=== PATIENT | male | born 1960 | race Caucasian/White ===

== ENCOUNTER 2022-09-09 22:39 | Inpatient (IN) | payer OTHER, SELFPAY ==
[2022-09-09 22:07] VITALS: BP 110/80; PULSE 109; RESP 16; TEMP 37.2; O2SAT 100
[2022-09-09 22:10] VITALS: PULSE 105; RESP 12; RESP 17; O2SAT 100
[2022-09-09 22:15] VITALS: BP 129/86; PULSE 110; RESP 16; O2SAT 100
[2022-09-09 22:30] VITALS: BP 97/74; PULSE 104; RESP 14; O2SAT 100
[2022-09-09 22:45] VITALS: BP 85/61; PULSE 98; RESP 19; O2SAT 100
--- NOTE | 2022-09-09 22:55 | HP.PCM.HOS_ITS ---
HPI - General General Date of Admission: 09/09/22 Date of Service: 09/09/22 Chief Complaint: Altered mental status HPI Narrative CHAD DEVINE, is a 62 M with a significant history of liver cancer status post radiation beats who presented to [facility] with altered mental status. History was obtained from outgoing hospitalist and from review of charts as patient was intubated and on mechanical ventilation at the time of se eing patient. Reportedly 3 weeks ago patient was at [facility] in the hospital for altered mental status. At that time he was found to be intoxicated. Reportedly patient's drinks alcohol at the back of his . On the day of current presentation patient again presented to [facility] for altered mental status. His ammonia was normal at 29. The patient was agitated and after trial of multiple medications without any real success to calm his agitation patient was intubated and placed on mechanical ventilation. Patient received etomidate and propofol. CT of his head was negative. Initially patient was given Rocephin. However lab work showed no UTI. He had elevated lactic acid which normalized with IV fluids. It was assumed that patient was in alcohol withdrawal. Of note patient fell 3 days before presentation. Case was discussed with hospitalist and research and development technician and patient was accepted to [facility]. [facility] Medical History (Updated 09/09/22 @ 23:[address] Bakari Stout MD) Liver cancer Home Medications alprazolam 0.5 mg tablet 0.5 mg PO TID PRN Anxiety 09/09/22 [History Last Taken Unknown] clonazepam 1 mg tablet 1 mg PO TID PRN Anxiety 09/09/22 [History Last Taken Unknown] diltiazem HCl 120 mg capsule,extended release 24 hr 120 mg PO DAILY Check with primary doctor 09/09/22 [History Last Taken Unknown] metoprolol succinate 25 mg tablet,extended release 24 hr 25 mg PO DAILY Check with primary doctor 09/09/22 [History Last Taken Unknown] pantoprazole 20 mg tablet,delayed release 20 mg PO DAILY Check with primary doctor 09/09/22 [History Last Taken Unknown] sennosides 8.6 mg-docusate sodium 50 mg tablet (Stool Softener-Laxative) 1 tab PO DAILY PRN Constipation 09/09/22 [History Last Taken Unknown] trazodone 50 mg tablet 50 mg PO QHS sleep 09/09/22 [History Last Taken Unknown] Allergy/AdvReac Type Severity Reaction Status Date / Time fluoxetine Allergy PT UNABLE Verified 09/09/22 23:30 TO RESPOND-NEEDS F/U Family History unable to obtain unable to obtain Surgical History unable to obtain unable to obtain Social History (Updated 09/09/22 @ 23:[address] Bakari Stout MD) alcohol intake: current ROS Review of Systems ROS Unobtainable: due to mental condition Vital Signs Vital Signs Vital Signs: 09/09/22 22:10 Pulse Rate 105 H Respiratory Rate 17 Respiratory Pattern Normal Pulse Ox 100 Fraction of Inspired Oxygen (FIO2) 30 Physical Exam Narrative Physical exam: General: Well-nourished, well-developed. Head: Normocephalic, closely approximated wound on forehead. Eyes: Vision is grossly intact. EOMI ENT: ET tube in place. Neck: Nontender, No thyromegaly. CVS: Tachycardia. S1-S2 present. No murmur, gallop or rub. Respiratory : clear to auscultation bilaterally, chest wall nontender Abdomen: Soft, nontender, nondistended, normal bowel sounds, no masses : Hobbs catheter in place Back: Nontender, no CVA tenderness, no midline spinal tenderness. Extremities: Nontender; no trauma Skin: Normal color, abrasions Neuro: Hypoalert on mechanical ventilation with propofol running. Follows some commands. Mild agitation. Psychiatry: On mechanical ventilation with mild agitation.. Assessment & Plan Assessment/Plan (1) Encephalopathy acute: (2) Liver cancer: PLAN: Plan Acute encephalopathy Etiology unclear but attributed to alcohol withdrawal. Alcohol level at outside hospital was unremarkable. Placed on mechanical ventilation, at outside hospital and continued. ABG at outside hospital showed pH of 7.22; PCO2 of 55; PO2 of 113 on mechanical ventilation of 40%. Repeat ABG. COVID antigen test at outside hospital negative. High sensitive troponin at outside hospital was normal. Urine drug screen at outside hospital was negative for PCP, cocaine, opioids, amphetamines, methadone, barbiturates and THC. However it was positive for diazepines. Reportedly patient takes diazepam at home. CMP at outside hospital was remarkable for potassium of 3.3; bicarbonate of 19.2 low. High-dose of thiamine ordered. Folic acid ordered. Continue propofol. Fentanyl drip added. Turret Lathe Operator consult. Liver cancer Radiation beads placed on 08/01/2022. Follows up at [facility]. Next follow- up is 10/03/2022. Trend CMP. DVT prophylaxis Subcutaneous Lovenox ordered. GI prophylaxis: Pepcid ordered. Charges/Coding Visit Charges Inpatient E&M: 85756 Init Hosp L3
[2022-09-09 22:59] VITALS: BMI 24.4
[2022-09-09 23:00] VITALS: BP 86/62; PULSE 93; RESP 18; O2SAT 100
[2022-09-09] MEDS: 0.9% Normal Saline 1,000 ML 75 ML IV (23:55)
[2022-09-10] VITALS (32 sets, daily range): BP systolic 92–122; BP diastolic 62–81; PULSE 82–100; RESP 12–17; TEMP 36.6–37.3; O2SAT 93–100; BMI 24.4
[2022-09-10 00:15] LABS: Allen Test Positive; Base Excess -5 mmol/L (-2 to +2); Bicarbonate 21.2 mmol/L (22-26); Blood Gas Specimen Type ART; FI02 30; Mode AC; O2 Delivery Device Adult Vent; PEEP 5; PO2 102 mmHG (75-100); RR 12; SITE L Radial; SO2 97 % (95-99); Total Carbon Dioxide 23 mmol/L; Vt 500; pCO2 40.1 mmHg (35-45); pH 7.33 (7.35-7.45)
--- NOTE | 2022-09-10 00:42 | NURSING ---
Pt arrived on 30mcg. Propofol ordered to start at 10mcg, but due to agitation and restlessness pt's propofol remained at 30mcg.
[2022-09-10 03:49] LABS: Absolute Lymphocyte Count 0.92 X10^3/uL (0.83-4.51); Absolute Neutrophil Count 4.7 X10^3/uL (2.0-7.7); Basophil# 0.05 X10^3/uL; Basophil% 0.8 % (0-1); Eosinophil# 0.11 X10^3/uL; Eosinophils% 1.7 % (0-5); Hematocrit 33.2 % (40-54); Lymphocyte # 0.92 X10^3/ul (0.83-4.51); Lymphocyte % 14.2 % (19-41); Mean Corp Hgb Conc 33.1 g/dL (32-36); Mean Corpuscular Hgb 37.5 pg (27.0-32.0); Mean Corpuscular Volume 113.3 fL (80-94); Mean Platelet Vol. 8.6 fl (6.2-12.0); Monocyte# 0.65 X10^3/uL; NRBC Flagged by Analyzer 0 % (0-5); Neutrophil # 4.71 X10^3/uL (2.7-7.7); Neutrophil % 72.4 % (47-70); Platelet Count 277 K/mm3 (150-450); RBC Distribution Width CV 13.9 % (11.6-14.6); RBC Distribution Width SD 57.9 fl (35.1-43.9); Red Blood Count 2.93 M/mm3 (4.6-6.2); White Blood Count 6.5 K/mm3 (4.4-11.0)
[2022-09-10 04:06] LABS: ALB/GLOB Ratio 0.6 RATIO (0.9-2.4); AST(SGOT) 99 U/L (15-37); Alanine Aminotransfer ALT/SGPT 64 U/L (16-61); Albumin, Serum 2.2 g/dL (3.2-5.0); Alkaline Phosphatase 255 U/L (45-117); Anion Gap 6 (5-15); BUN 19 mg/dL (7-18); BUN/Creat Ratio 34.4 RATIO (10-20); Calcium,Total 8.4 mg/dL (8.5-10.1); Chloride 113 mmol/L (98-107); Creatinine, Serum 0.55 mg/dL (0.70-1.30); EST Glomerular Filtration Rate 160 mL/min (>60); Est Glom Filt Rate - Afr Amer 193 mL/min (>60); Estimated Creatinine Clearance 154.81 ml/min; Globulin 3.9 g/dL (2.2-4.2); Glucose 67 mg/dL (74-106); Potassium 3.1 mmol/L (3.5-5.1); Protein, Total 6.1 g/dL (6.4-8.2); Sodium Level 141 mmol/L (136-145)
[2022-09-10] MEDS: Propofol 10MG/Ml 1,000 MG/100 ML Bottle 14.7 MG CONT INF ×4 (05:21→17:12)
[2022-09-10 05:31] LABS: Bedside Glucose 56 mg/dL (74-106)
[2022-09-10 05:35] LABS: Bedside Glucose 73 mg/dL (74-106)
--- NOTE | 2022-09-10 05:40 | RAD_ITS ---
INDICATION: respiratory failure - ETT placement EXAMINATION/TECHNIQUE: X-RAY - XR Chest 1 View COMPARISON: None. FINDINGS: LINES/DEVICES: Endotracheal tube is seen its tip is 4 cm superior to the mli. An NG tube is seen its tip is below the diaphragm is in good position. LUNGS: No consolidation, edema or effusion. No pneumothorax. MEDIASTINUM AND CARDIOVASCULAR STRUCTURES: Cardiac silhouette not enlarged. Central airways and mediastinal contour are unremarkable. BONES AND SOFT TISSUES: Unremarkable. RAD/Chest 1 View (Portable) IMPRESSION: No radiographic evidence of acute cardiopulmonary disease. Electronically Signed: Jayda Siegel MD at 7:05 EDT ,
[2022-09-10 05:49] LABS: Magnesium 1.7 mg/dL (1.6-2.6); Phosphorus 1.7 mg/dL (2.5-4.9)
[2022-09-10] MEDS: Dext 5%-0.45% NS 1,000 ML 75 ML IV (06:03)
[2022-09-10 06:42] LABS: CPK Total, Creatine Kinase 146 U/L (39-308); Triglycerides 129 mg/dL
--- NOTE | 2022-09-10 07:25 | EX.PCM.CONCC ---
Assessment & Plan Assessment/Plan (1) Encephalopathy acute: PLAN: Plan RECOMMENDATIONS: 1. Aggressive electrolyte repletion 2. Initiation of tube feeds 3. Start Seroquel therapy 4. Possible MRI and EEG 5. Obtain further information once family available 6. Initiate empiric antibiotics and panculture with fever IMPRESSIONS: 1. Acute encephalopathy Unclear etiology at this time. Patient does not appear to have brain metastasis on CT of the head on my review. Formal study report is not available for review. It is unclear if patient has had an MRI in the past, but metastasis would be a concern given patient's ongoing liver cancer. Patient does have some electrolyte derangements that may be leading to delirium. These will be aggressively addressed. Patient's laboratory studies are not suggestive of sepsis, but if patient develops fever, recommend panculture and empiric antibiotics 2. Acute respiratory failure secondary to medications Patient with severe agitation requiring intubation for airway protection. Chest x-ray does not show any focal infiltrates or suggestions of aspiration at this time. Patient is on minimal settings. Given ambiguity of problem #1 and intermittent cooperation, will continue mechanical ventilation at this time to facilitate work-up including possible MRI if this has not been completed at an outside facility in the recent past. 3. Hypoglycemia Home medication list is not available for review at this time. We will attempt to obtain information on whether patient is taking hyperglycemic medications. Patient can be initiated on tube feeds. D5 can be discontinued once this has been initiated. Presentation does not appear to be secondary to hypoglycemia. 4. Lack of history/reported liver cancer/potential alcoholism Complicates care, management, recovery and prognosis. We will attempt to obtain further information today. TIME: 35 minutes critical care time spent addressing patient's acute encephalopathy, respiratory failure, hyperglycemia, review of all data and collaboration with care team HPI Consult Data Date of Consult: 09/10/22 HPI Narrative Reason for Consultation: Respiratory failure HPI Narrative: CHAD DEVINE is a 62 M, with past medical history listed below, who presents to [facility] from an outside facility secondary to respiratory failure. Patient reportedly has a history of liver cancer status postradiation beads who had presented with altered mental status. Patient received multiple medications and ultimately received a paralytic and required intubation. Patient reportedly had presented to the outside facility with similar type of complaints 3 weeks prior. There has been questions of intoxication and alcohol abuse. Outside facility did do multiple scans. Patient reportedly had a laceration at the top of his head on Monday of this week, but did not seek medical care. Patient was initially given Rocephin. Patient was transferred to [facility] for further care. Since being at the intensive care unit, patient has become more responsive. Patient, despite propofol, has attempted extubation multiple times. Patient is on minimal vent settings at this time. Patient does not have much additional information available at this time. Patient is on benzodiazepines at baseline, but tox screen has been unrevealing otherwise. Patient has had some issues with hypoglycemia this morning that was treated with glucose. No seizure activity has been reported by medical staff. Patient's is not present for clarification of history. Unable to obtain review of systems at this time. [facility] Medical History Liver cancer Home Medications alprazolam 0.5 mg tablet 0.5 mg PO TID PRN Anxiety 09/09/22 [History Last Taken Unknown] clonazepam 1 mg tablet 1 mg PO TID PRN Anxiety 09/09/22 [History Last Taken Unknown] diltiazem HCl 120 mg capsule,extended release 24 hr 120 mg PO DAILY Check with primary doctor 09/09/22 [History Last Taken Unknown] metoprolol succinate 25 mg tablet,extended release 24 hr 25 mg PO DAILY Check with primary doctor 09/09/22 [History Last Taken Unknown] pantoprazole 20 mg tablet,delayed release 20 mg PO DAILY Check with primary doctor 09/09/22 [History Last Taken Unknown] sennosides 8.6 mg-docusate sodium 50 mg tablet (Stool Softener-Laxative) 1 tab PO DAILY PRN Constipation 09/09/22 [History Last Taken Unknown] trazodone 50 mg tablet 50 mg PO QHS sleep 09/09/22 [History Last Taken Unknown] Allergy/AdvReac Type Severity Reaction Status Date / Time fluoxetine Allergy PT UNABLE Verified 09/09/22 23:30 TO RESPOND-NEEDS F/U Family History unable to obtain Surgical History unable to obtain Social History Smoking Status: Unknown if ever smoked alcohol intake: current ROS Review of Systems ROS Unobtainable: due to endotracheal tube and due to mental status Physical Exam Narrative RASS -1 to +2 Const alert Constitutional Narrative: Fair vent synchrony. Appears older than stated age General Appearance: cooperative and patient mechanically ventilated HEENT normocephalic HEENT Narrative: 5 cm laceration noted on the crown of the head with edges somewhat approximated. No exudate. Slight retrognathia Mouth: endotracheal tube in place and OG tube in place Eyes PERRL and EOMs intact bilaterally Neck full ROM and no lymphadenopathy Chest inspection of chest normal Resp normal respiratory effort Auscultation: clear to auscultation bilaterally; Negative for rales, rhonchi or wheezes Cardio regular rate, regular rhythm, S1 normal heart sound, S2 normal heart sound, no murmurs, no rub and no gallops GI normal to inspection, nondistended, normoactive bowel sounds Extremity no clubbing, cyanosis or edema Skin Skin Narrative: Laceration as above Neuro moves all extremities and no focal motor deficits Psych Mood & Affect: labile affect Medical Records Data Attestation: I reviewed the patient's medical records Medical records narrative: Multiple images were reviewed from disc provided. No reports were available for review. CT of the chest abdomen pelvis does not appear to show any infiltrates or masses to my eye. Patient does not appear to have obstruction or urinary stones. Formal reports are not available Lab / Micro Data Attestation: I reviewed the patient's lab results. Result Diagrams: 09/10/22 03:40 09/10/22 03:40 Labs: Laboratory Results - last 24 hr 09/10/22 03:40: WBC 6.5, RBC 2.93 L, Hgb 11.0 L, Hct 33.2 L, MCV 113.3 H, MCH 37.5 H, MCHC 33.1, RDW Std Deviation 57.9 H, RDW Coeff of Joe 13.9, Plt Count 277, MPV 8.6, Immature Gran % (Auto) 0.900, Neut % (Auto) 72.4 H, Lymph % (Auto) 14.2 L, [place] % (Auto) 10.0, Eos % (Auto) 1.7, Baso % (Auto) 0.8, Absolute Neuts (auto) 4.7, Absolute Lymphs (auto) 0.92, Nucleated RBC % 0 09/10/22 03:40: Sodium 141, Potassium 3.1 L, Chloride 113 H, Carbon Dioxide 22.0, Anion Gap 6, BUN 19 H, Creatinine 0.55 L, Estim Creat Clear Calc 154.81, Est GFR (MDRD) Af Amer 193, Est GFR (MDRD) Non-Af 160, BUN/Creatinine Ratio 34.4 H, Glucose 67 L, Calcium 8.4 L, Total Bilirubin 0.60, AST 99 H, ALT 64 H, Alkaline Phosphatase 255 H, Total Protein 6.1 L, Albumin 2.2 L, Globulin 3.9, Albumin/Globulin Ratio 0.6 L 09/10/22 03:40: Total Creatine Kinase 146, Triglycerides 129 09/10/22 03:40: Phosphorus 1.7 L, Magnesium 1.7 09/10/22 04:42: POC Glucose 56 L 09/10/22 05:14: POC Glucose 73 L Micro: Microbiology 09/09/22 22:05 Sputum, Tracheal Aspirate Gram Stain - Preliminary ABG Data ABG results: ABG 09/10/22 00:08 Specimen Type ART Sample Site L Radial pH 7.33 L Bicarbonate Actual 21.2 L Total CO2 23 Base Excess -5 L O2 Saturation 97 O2 % 30 ABG pCO2 40.1 ABG pO2 102 H Wilver Test Positive Respiration Rate 12 O2 Delivery Device Adult Vent Vent Mode AC Tidal Volume 500 POC PEEP 5 Attestation: I personally reviewed and interpreted this ABG as follows: (Acute mild metabolic acidosis with increased AA gradient) Rhythm Strip Rhythm Strip: Sinus Rhythm Rate: 91 Radiology Impression Chest X-Ray 09/10/22 05:40 IMPRESSION: No radiographic evidence of acute cardiopulmonary disease. Electronically Signed: Jayda Siegel MD at 7:05 EDT Reading Location ID and State: [facility] / [place] Tel , Service support , Charges/Coding Procedures Hospitalists Procedures: [id number] Critial Care 1st Hr
[2022-09-10] MEDS: Potassium Chloride Oral Soln 20 MEQ/15 ML UDC 40 MEQ PO (07:45)
[2022-09-10] MEDS: Chlorhexidine 15 ML PO ×2 (07:46→20:58)
[2022-09-10] MEDS: CHLORHEXIDINE GLUC 2% CLOTH 1 EACH TOWELETTE TOPICAL (07:50)
[2022-09-10] MEDS: QUEtiapine 25 MG Tablet 50 MG GT ×2 (08:51→20:58)
[2022-09-10] MEDS: Enoxaparin 40 MG/0.4 ML Syringe SC (08:53)
--- NOTE | 2022-09-10 10:09 | PN.HOSP_ITS ---
Reason for Visit Reason for Visit: Diagnoses Malignant neoplasm of liver, not specified as primary or secondary (09/09/22) Encephalopathy, unspecified (09/09/22) Subjective Subjective Presently intubated, is following commands Objective Data Objective Data Vital Signs: Vital Signs Temp Pulse Resp BP Pulse Ox O2 Del Method FiO2 98.5 F 92 16 101/73 96 Mechanical Ventilator 21 09/10/22 05:00 09/10/22 09:17 09/10/22 09:17 09/10/22 07:00 09/10/22 09:17 09/10/22 07:00 09/10/22 09:17 Oxygen Delivery Method Mechanical Ventilator Weight: 81.8 kg Body Mass Index (BMI) 24.4 Intake & Output: Intake and Output for Last 24 Hours 09/08/22 09/09/22 09/10/22 23:59 23:59 23:59 Intake Total 742.77 / 742.77 Balance 742.77 / 742.77 Lab / Micro Data Result Diagrams: 09/10/22 03:40 09/10/22 03:40 Labs: Laboratory Results - last 24 hr 09/10/22 03:40: WBC 6.5, RBC 2.93 L, Hgb 11.0 L, Hct 33.2 L, MCV 113.3 H, MCH 37.5 H, MCHC 33.1, RDW Std Deviation 57.9 H, RDW Coeff of Joe 13.9, Plt Count 277, MPV 8.6, Immature Gran % (Auto) 0.900, Neut % (Auto) 72.4 H, Lymph % (Auto) 14.2 L, [place] % (Auto) 10.0, Eos % (Auto) 1.7, Baso % (Auto) 0.8, Absolute Neuts (auto) 4.7, Absolute Lymphs (auto) 0.92, Nucleated RBC % 0 09/10/22 03:40: Sodium 141, Potassium 3.1 L, Chloride 113 H, Carbon Dioxide 22.0, Anion Gap 6, BUN 19 H, Creatinine 0.55 L, Estim Creat Clear Calc 154.81, Est GFR (MDRD) Af Amer 193, Est GFR (MDRD) Non-Af 160, BUN/Creatinine Ratio 34.4 H, Glucose 67 L, Calcium 8.4 L, Total Bilirubin 0.60, AST 99 H, ALT 64 H, Alkaline Phosphatase 255 H, Total Protein 6.1 L, Albumin 2.2 L, Globulin 3.9, Albumin/Globulin Ratio 0.6 L 09/10/22 03:40: Total Creatine Kinase 146, Triglycerides 129 09/10/22 03:40: Phosphorus 1.7 L, Magnesium 1.7 09/10/22 04:42: POC Glucose 56 L 09/10/22 05:14: POC Glucose 73 L Micro: Microbiology 09/09/22 22:05 Sputum, Tracheal Aspirate Gram Stain - Preliminary ABG Data ABG results: ABG 09/10/22 00:08 Specimen Type ART Sample Site L Radial pH 7.33 L Bicarbonate Actual 21.2 L Total CO2 23 Base Excess -5 L O2 Saturation 97 O2 % 30 ABG pCO2 40.1 ABG pO2 102 H Wilver Test Positive Respiration Rate 12 O2 Delivery Device Adult Vent Vent Mode AC Tidal Volume 500 POC PEEP 5 Radiography Diagnostic Testing: Radiology Impression Chest X-Ray 09/10/22 05:40 IMPRESSION: No radiographic evidence of acute cardiopulmonary disease. Electronically Signed: Jayda Siegel MD at 7:05 EDT , Rhythm Strip Rhythm Strip: Sinus Rhythm Rate: 91 Physical Exam Narrative General: Alert, following commands HEENT: Head lack, normocephalic Eyes: Anicteric, normal conjunctiva, extraocular movements grossly intact Neck: Supple Respiratory: Mechanically ventilated, no wheezing Cardiovascular: Regular rate and rhythm GI: Soft, nontender, nondistended Extremities: 1+ lower extremity edema Musculoskeletal: Moving all extremities Neuro: No overt focal neurological deficits appreciable on present exam Skin: No rashes appreciated Psych: Cooperative Assessment & Plan Assessment/Plan (1) Encephalopathy acute: (2) Liver cancer: PLAN: Plan #Acute encephalopathy -Suspect metabolic but cannot rule out toxic -Had been at outlying facility 3 weeks ago with altered mental status and at the time was intoxicated but represented again yesterday with altered mental status and he was so agitated that he ended up requiring enough medication that he needed intubated -On ventilator in the ED, unclear etiology of this episode -May need MRI of his head given his history of liver cancer -Had fallen several days prior to presentation and has had laceration but CT head with no bleed -Started on Seroquel today, possibly will get MRI and EEG -On empiric antibiotics and cultures obtained given his fever -Was on vent but awake and following commands however given unclear etiology and waxing and waning he has not yet extubated pending conversation with family -Takes benzodiazepines at home talk screen otherwise negative, reportedly previous alcohol levels have been negative -Possible history of alcohol use, continue thiamine and folic acid #Acute respiratory failure secondary to medication for agitation -Remains ventilated, given unclear reason for his presenting problem he remains intubated pending further conversation and test results #Hypoglycemia -Receiving dextrose IV -We will order glucose checks #History of liver cancer -Previously had radiation beads -Has slightly elevated liver function, will trend CMP #DVT ppx: Lovenox subcu Queenie Oviedo MD Time spent in the patient's overall evaluation,decision-making process, review of diagnostic data, adjustment of management, discussion with other providers, nursing nursing and ancillary staff involved in patient's care documentation, 30 minutes Charges/Coding Visit Charges Inpatient E&M: 97137 Subs Hosp L2
[2022-09-10] MEDS: Vital AF 1.2 Cal Liquid 1,000 ML 20 ML GT (11:10)
[2022-09-10 11:40] LABS: Bedside Glucose 71 mg/dL (74-106)
--- NOTE | 2022-09-10 13:35 | CASEMGMT ---
[facility] Face to Face with patient's , Jacquleine, for initial transition planning/care coordination assessment as patient is currently intubated. RN CM introduced self and role at [facility]. willing to participate in assessment and is able to answer all questions appropriately. Care providers, pharmacy, and demographics verified. wishes for patient to discharge home. Will monitor course of treatment and progress with therapy. states she has no further needs or concerns at this time. CM to follow for discharge planning needs that may arise. PCP: Raquel Specialists: Hua underliner; Eulalio Dalal and [facility] onc[facility]sit Preferred Pharmacy: [facility] Insurance: [employer] Prescription Benefit: yes Living Will/HPOA: none LNOK: Living Arrangements: Patient lives with in a single story home with 2 steps to enter. Patient is independent at home. Transportation: self, DME/HHC: Patient has crutches and raised toilet at home. No previous HHC or SNF Disposition Plan: TBD, will monitor course of treatment and progress with therapy. Yvette CANO, RN, CM
[2022-09-10 16:26] LABS: Bedside Glucose 79 mg/dL (74-106)
--- NOTE | 2022-09-10 18:10 | NURSING ---
pt clothes & wallet taken home per
[2022-09-10 22:40] LABS: Bedside Glucose 79 mg/dL (74-106)
[2022-09-10] MEDS: Propofol 10MG/Ml 1,000 MG/100 ML Bottle 17.2 MG CONT INF (23:26)
[2022-09-11] VITALS (27 sets, daily range): BP systolic 94–144; BP diastolic 62–92; PULSE 75–174; RESP 12–23; TEMP 36.6–37.3; O2SAT 93–98; BMI 25.2
[2022-09-11 03:11] LABS: Absolute Lymphocyte Count 1.02 X10^3/uL (0.83-4.51); Absolute Neutrophil Count 3.4 X10^3/uL (2.0-7.7); Basophil# 0.04 X10^3/uL; Basophil% 0.8 % (0-1); Eosinophil# 0.16 X10^3/uL; Eosinophils% 3.1 % (0-5); Hematocrit 30.6 % (40-54); Hemoglobin 10.1 g/dL (13.0-16.5); Lymphocyte # 1.02 X10^3/ul (0.83-4.51); Lymphocyte % 19.7 % (19-41); Mean Corpuscular Hgb 37.1 pg (27.0-32.0); Mean Corpuscular Volume 112.5 fL (80-94); Mean Platelet Vol. 8.5 fl (6.2-12.0); Monocyte# 0.51 X10^3/uL; Monocyte% 9.8 % (0-10); NRBC Flagged by Analyzer 0 % (0-5); Neutrophil # 3.39 X10^3/uL (2.7-7.7); Neutrophil % 65.3 % (47-70); Platelet Count 246 K/mm3 (150-450); RBC Distribution Width CV 13.9 % (11.6-14.6); RBC Distribution Width SD 57.1 fl (35.1-43.9); Red Blood Count 2.72 M/mm3 (4.6-6.2); White Blood Count 5.2 K/mm3 (4.4-11.0)
[2022-09-11] MEDS: Propofol 10MG/Ml 1,000 MG/100 ML Bottle 17.2 MG CONT INF (03:40)
[2022-09-11 03:52] LABS: ALB/GLOB Ratio 0.5 RATIO (0.9-2.4); AST(SGOT) 85 U/L (15-37); Alanine Aminotransfer ALT/SGPT 51 U/L (16-61); Albumin, Serum 1.8 g/dL (3.2-5.0); Alkaline Phosphatase 243 U/L (45-117); Anion Gap 3 (5-15); BUN 19 mg/dL (7-18); BUN/Creat Ratio 36.3 RATIO (10-20); Calcium,Total 7.7 mg/dL (8.5-10.1); Chloride 110 mmol/L (98-107); Creatinine, Serum 0.52 mg/dL (0.70-1.30); EST Glomerular Filtration Rate 170 mL/min (>60); Est Glom Filt Rate - Afr Amer 206 mL/min (>60); Estimated Creatinine Clearance 163.74 ml/min; Globulin 3.5 g/dL (2.2-4.2); Glucose 92 mg/dL (74-106); Magnesium 1.9 mg/dL (1.6-2.6); Potassium 3.3 mmol/L (3.5-5.1); Protein, Total 5.3 g/dL (6.4-8.2); Sodium Level 137 mmol/L (136-145)
[2022-09-11] MEDS: 0.9% Saline Lock 10 ML Syringe IV (04:03)
[2022-09-11] MEDS: CHLORHEXIDINE GLUC 2% CLOTH 1 EACH TOWELETTE TOPICAL (04:04)
[2022-09-11 06:05] LABS: Allen Test Positive; Base Excess 0 mmol/L (-2 to +2); Bicarbonate 24.2 mmol/L (22-26); Blood Gas Specimen Type ART; FI02 21; Mode CPAP/PS; O2 Delivery Device ET Tube; PEEP 5; PO2 58 mmHG (75-100); PS 5; SITE R Radial; SO2 91 % (95-99); Total Carbon Dioxide 25 mmol/L; pH 7.44 (7.35-7.45)
[2022-09-11] MEDS: QUEtiapine 25 MG Tablet 50 MG GT (06:09)
--- NOTE | 2022-09-11 06:20 | NURSING ---
Pt extubated to room air @ 0610.
[2022-09-11 06:46] LABS: Bedside Glucose 90 mg/dL (74-106)
--- NOTE | 2022-09-11 06:55 | PN.CC_ITS ---
Assessment & Plan Assessment/Plan (1) Encephalopathy acute: PLAN: Plan RECOMMENDATIONS: 1. Aggressive electrolyte repletion 2. Initiation of p.o. diet if passes bedside swallow 3. Continue Seroquel therapy 4. Possible MRI and EEG tomorrow. Defer to hospitalist 5. Hemodynamically stable on room air. Will sign off from a critical care perspective 6. Likely okay to leave the intensive care unit later today if does well given intubation only for airway protection IMPRESSIONS: 1. Acute encephalopathy Unclear etiology at this time. Patient does not appear to have brain metastasis on CT of the head on my review. Formal study report is not available for review. It is unclear if patient has had an MRI in the past, but metastasis would be a concern given patient's ongoing liver cancer. Patient does have some electrolyte derangements that may be leading to delirium. These are being aggressively addressed. Patient's laboratory studies are not suggestive of sepsis, but if patient develops fever, recommend panculture and empiric antibiotics 2. Acute respiratory failure secondary to medications Resolved. Patient with severe agitation requiring intubation for airway protection. Chest x-ray does not show any focal infiltrates or suggestions of aspiration at this time. Patient is on minimal settings. Given ambiguity of problem #1 and intermittent cooperation, will continue mechanical ventilation at this time to facilitate work-up including possible MRI if this has not been completed at an outside facility in the recent past. 3. Hypoglycemia Home medication list is not available for review at this time. We will attempt to obtain information on whether patient is taking oral hyperglycemic medications. Await bedside swallow evaluation and then initiate p.o. diet. Presentation does not appear to be secondary to hypoglycemia. 4. Lack of history/reported liver cancer/potential alcoholism Complicates care, management, recovery and prognosis. We will attempt to obtain further information today. TIME: 32 minutes critical care time spent addressing patient's acute encephalopathy, respiratory failure, hyperglycemia, review of all data and collaboration with care team Subjective Subjective Patient did well overnight. Patient continued to have some mild impulsiveness, but otherwise did well. Patient did tolerate a spontaneous breathing trial this morning and was able to be extubated after my initial evaluation. On repeat evaluation, patient was hoarse, so was not able to provide much additional information. Patient did state that he had no recollection of anything past Monday. Patient does not recall going to the outside facility or being transported by EMS. Objective Data Objective Data Vital Signs: Vital Signs Temp Pulse Resp BP Pulse Ox O2 Del Method FiO2 37.3 C 90 12 127/84 H 94 Room Air 21 09/11/22 04:00 09/11/22 06:00 09/11/22 06:00 09/11/22 06:00 09/11/22 06:43 09/11/22 06:43 09/11/22 06:00 Oxygen Delivery Method Room Air Weight: 84.3 kg Body Mass Index (BMI) 25.2 Intake & Output: Intake and Output for Last 24 Hours 09/09/22 09/10/22 09/11/22 23:59 23:59 23:59 Intake Total 3358.6133 / 3370.8633 508.14 / 508.14 Output Total 600 / 600 250 / 250 Balance 2758.6133 / 2770.8633 258.14 / 258.14 Lab / Micro Data Attestation: I reviewed the patient's lab results. Result Diagrams: 09/11/22 03:00 09/11/22 03:00 Labs: Laboratory Results - last 24 hr 09/10/22 11:19: POC Glucose 71 L 09/10/22 15:56: POC Glucose 79 09/10/22 22:21: POC Glucose 79 09/11/22 03:00: WBC 5.2, RBC 2.72 L, Hgb 10.1 L, Hct 30.6 L, MCV 112.5 H, MCH 37.1 H, MCHC 33.0, RDW Std Deviation 57.1 H, RDW Coeff of Joe 13.9, Plt Count 246, MPV 8.5, Immature Gran % (Auto) 1.300 H, Neut % (Auto) 65.3, Lymph % (Auto) 19.7, [place] % (Auto) 9.8, Eos % (Auto) 3.1, Baso % (Auto) 0.8, Absolute Neuts (auto) 3.4, Absolute Lymphs (auto) 1.02, Nucleated RBC % 0 09/11/22 03:00: Sodium 137, Potassium 3.3 L, Chloride 110 H, Carbon Dioxide 2 4.0, Anion Gap 3 L, BUN 19 H, Creatinine 0.52 L, Estim Creat Clear Calc 163.74, Est GFR (MDRD) Af Amer 206, Est GFR (MDRD) Non-Af 170, BUN/Creatinine Ratio 36.3 H, Glucose 92, Calcium 7.7 L, Magnesium 1.9, Total Bilirubin 0.40, AST 85 H, ALT 51, Alkaline Phosphatase 243 H, Total Protein 5.3 L, Albumin 1.8 L, Globulin 3.5, Albumin/Globulin Ratio 0.5 L 09/11/22 03:00: Phosphorus 2.0 L 09/11/22 06:26: POC Glucose 90 Micro: Microbiology 09/09/22 22:05 Sputum, Tracheal Aspirate Gram Stain - Final ABG Data ABG results: ABG 09/11/22 06:01 Specimen Type ART Sample Site R Radial pH 7.44 Bicarbonate Actual 24.2 Total CO2 25 Base Excess 0 O2 Saturation 91 L O2 % 21 ABG pCO2 36.0 ABG pO2 58 L Wilver Test Positive O2 Delivery Device ET Tube Vent Mode CPAP/PS POC PEEP 5 POC Pressure Suppt 5 Attestation: I personally reviewed and interpreted this ABG as follows: (Relatively normal acid-base with slightly increased AA gradient for age) Radiography Diagnostic Testing: Radiology Impression Chest X-Ray 09/10/22 05:40 IMPRESSION: No radiographic evidence of acute cardiopulmonary disease. Electronically Signed: Jayda Siegel MD at 7:05 EDT Reading Location ID and State: [facility] / [place] Tel , Service support , Rhythm Strip Rhythm Strip: Sinus Rhythm Rate: 91 Physical Exam Narrative RASS -1 to +2 Const alert Constitutional Narrative: Tolerated trial well when initially evaluated. Appears older than stated age General Appearance: cooperative and patient mechanically ventilated HEENT normocephalic HEENT Narrative: Large laceration on the top of the skull Eyes PERRL and EOMs intact bilaterally Neck full ROM and no lymphadenopathy Chest inspection of chest normal Resp normal respiratory effort Auscultation: clear to auscultation bilaterally; Negative for rales, rhonchi or wheezes Cardio regular rate, regular rhythm, S1 normal heart sound, S2 normal heart sound, no murmurs, no rub and no gallops GI normal to inspection, nondistended, normoactive bowel sounds Extremity no clubbing, cyanosis or edema Skin Skin Narrative: Laceration as above Neuro moves all extremities and no focal motor deficits Psych Mood & Affect: labile affect Charges/Coding Procedures Hospitalists Procedures: 88661 Critial Care 1st Hr
--- NOTE | 2022-09-11 07:40 | PCM.PN.HOSP ---
Reason for Visit Reason for Visit: Diagnoses Malignant neoplasm of liver, not specified as primary or secondary (09/09/22) Encephalopathy, unspecified (09/09/22) Subjective Subjective Patient extubated this morning. Reports he does not remember many of the events leading up to his hospitalization. Was feeling very anxious and noted he takes 1 mg of clonidine 3 times a day with usually 1 mg of Xanax at bedtime and multiple glasses of wine every night Objective Data Objective Data Vital Signs: Vital Signs Temp Pulse Resp BP Pulse Ox O2 Del Method FiO2 99.1 F 105 H 17 144/78 H 94 Mechanical Ventilator 21 09/11/22 04:00 09/11/22 07:00 09/11/22 07:00 09/11/22 07:00 09/11/22 07:00 09/11/22 07:00 09/11/22 07:00 Oxygen Delivery Method Mechanical Ventilator Weight: 84.3 kg Body Mass Index (BMI) 25.2 Intake & Output: Intake and Output for Last 24 Hours 09/09/22 09/10/22 09/11/22 23:59 23:59 23:59 Intake Total 3358.6133 / 3370.8633 508.14 / 508.14 Output Total 600 / 600 250 / 250 Balance 2758.6133 / 2770.8633 258.14 / 258.14 Lab / Micro Data Result Diagrams: 09/11/22 03:00 09/11/22 03:00 Labs: Laboratory Results - last 24 hr 09/10/22 11:19: POC Glucose 71 L 09/10/22 15:56: POC Glucose 79 09/10/22 22:21: POC Glucose 79 09/11/22 03:00: WBC 5.2, RBC 2.72 L, Hgb 10.1 L, Hct 30.6 L, MCV 112.5 H, MCH 37.1 H, MCHC 33.0, RDW Std Deviation 57.1 H, RDW Coeff of Joe 13.9, Plt Count 246, MPV 8.5, Immature Gran % (Auto) 1.300 H, Neut % (Auto) 65.3, Lymph % (Auto) 19.7, [place] % (Auto) 9.8, Eos % (Auto) 3.1, Baso % (Auto) 0.8, Absolute Neuts (auto) 3.4, Absolute Lymphs (auto) 1.02, Nucleated RBC % 0 09/11/22 03:00: Sodium 137, Potassium 3.3 L, Chloride 110 H, Carbon Dioxide 24.0, Anion Gap 3 L, BUN 19 H, Creatinine 0.52 L, Estim Creat Clear Calc 163.74, Est GFR (MDRD) Af Amer 206, Est GFR (MDRD) Non-Af 170, BUN/Creatinine Ratio 36.3 H, Glucose 92, Calcium 7.7 L, Magnesium 1.9, Total Bilirubin 0.40, AST 85 H, ALT 51, Alkaline Phosphatase 243 H, Total Protein 5.3 L, Albumin 1.8 L, Globulin 3.5, Albumin/Globulin Ratio 0.5 L 09/11/22 03:00: Phosphorus 2.0 L 09/11/22 06:26: POC Glucose 90 Micro: Microbiology 09/09/22 22:05 Sputum, Tracheal Aspirate Gram Stain - Final ABG Data ABG results: ABG 09/11/22 06:01 Specimen Type ART Sample Site R Radial pH 7.44 Bicarbonate Actual 24.2 Total CO2 25 Base Excess 0 O2 Saturation 91 L O2 % 21 ABG pCO2 36.0 ABG pO2 58 L Wilver Test Positive O2 Delivery Device ET Tube Vent Mode CPAP/PS POC PEEP 5 POC Pressure Suppt 5 Rhythm Strip Rhythm Strip: Sinus Rhythm Rate: 91 Physical Exam Narrative General: Alert, awake, following commands HEENT: Head laceration noted, normocephalic Eyes: Anicteric, normal conjunctiva, extraocular movements grossly intact Neck: Supple Respiratory: No significant rhonchi or wheezes Cardiovascular: Regular rate and rhythm GI: Soft, nontender, nondistended Extremities: 1+ lower extremity edema Musculoskeletal: Moving all extremities Neuro: No overt focal neurological deficits, no sustained nystagmus of eyes, slight tremor of outstretched hands with no flapping Skin: No rashes appreciated Psych: Appears very anxious Assessment & Plan Assessment/Plan (1) Encephalopathy acute: (2) Liver cancer: PLAN: Plan #Acute encephalopathy/chronic benzodiazepine use -Suspect metabolic but cannot rule out toxic -Had been at outlying facility 3 weeks ago with altered mental status and at the time was intoxicated but represented again yesterday with altered mental status and he was so agitated that he ended up requiring enough medication that he needed intubated -On ventilator in the ED, unclear etiology of this episode -May need MRI of his head given his history of liver cancer -Had fallen several days prior to presentation and has had laceration but CT head with no bleed -Started on Seroquel today, possibly will get MRI and EEG -On empiric antibiotics and cultures obtained given his fever -Was on vent but awake and following commands however given unclear etiology and waxing and waning he has not yet extubated pending conversation with family -Takes benzodiazepines at home talk screen otherwise negative, reportedly previous alcohol levels have been negative -Possible history of alcohol use, continue thiamine and folic acid -09/10: Patient reports 1 mg Klonopin 3 times daily at home usually with 1 mg of Xanax at night and several glasses of wine. Strongly suspect that this is the cause of form main contributing factor to his altered mental status. Patient getting very anxious now that sedation is wearing off, resume Klonopin and start on CIWA. Would heavily advise that these medications are tapered as an outpatient especially when not advise giving both benzodiazepines at the same time especially with patient's alcohol use. Continue thiamine and folate. MRI ordered for tomorrow. Can consider EEG moving forward pending mental status #Acute respiratory failure secondary to medication for agitation -Remains ventilated, given unclear reason for his presenting problem he remains intubated pending further conversation and test results -09/10: Extubated, protecting airway, transfer out of ICU #Hypoglycemia -Receiving dextrose IV -We will order glucose checks -09/10: Improving #History of liver cancer -Previously had radiation beads -Has slightly elevated liver function, will trend CMP -09/10: Improving liver function tests #DVT ppx: Lovenox subcu Queenie Oviedo MD Time spent in the patient's overall evaluation,decision-making process, review of diagnostic data, adjustment of management, discussion with other providers, nursing nursing and ancillary staff involved in patient's care documentation, 30 minutes Charges/Coding Visit Charges Inpatient E&M: 13934 Subs Hosp L2
--- NOTE | 2022-09-11 09:17 | EKG12_ITS ---
Test Reason : TACHYCARDIA Blood Pressure : / mmHG Vent. Rate : 169 BPM Atrial Rate : 085 BPM P-R Int : 000 ms QRS Dur : 096 ms QT Int : 276 ms P-R-T Axes : 000 051 054 degrees QTc Int : 462 ms Supraventricular tachycardia with frequent Premature ventricular complexes ST depression, consider subendocardial injury Abnormal ECG No previous ECGs available Confirmed by MICHELLE SANCHEZ ([id number]), editor sound BRANDON INMAN ([id number]) on 09/14/2022 10:32:51 AM Referred By: UJAN MITCHELL Confirmed By:MICHELLE SANCHEZ
[2022-09-11] MEDS: Metoprolol Tartrate 5 MG/5 ML Vial IV (09:22)
--- NOTE | 2022-09-11 09:23 | EKG12_ITS ---
Test Reason : TACHYCARDIA Blood Pressure : / mmHG Vent. Rate : 090 BPM Atrial Rate : 090 BPM P-R Int : 154 ms QRS Dur : 090 ms QT Int : 380 ms P-R-T Axes : 080 051 072 degrees QTc Int : 464 ms Normal sinus rhythm Normal ECG When compared with ECG of 11-SEP-2022 09:17, MANUAL COMPARISON REQUIRED, DATA IS UNCONFIRMED Confirmed by MICHELLE SANCHEZ ([id number]), editorial assistant BRANDON INMAN ([id number]) on 09/14/2022 10:32:59 AM Referred By: JUAN MITCHELL Confirmed By:MICHELLE SANCHEZ
[2022-09-11] MEDS: Enoxaparin 40 MG/0.4 ML Syringe SC (09:39)
[2022-09-11] MEDS: clonazePAM 1 MG Tablet PO ×3 (09:42→22:23)
[2022-09-11 13:25] LABS: Bedside Glucose 109 mg/dL (74-106)
[2022-09-11] MEDS: Metoprolol(XL)Succ 25 MG Tablet PO (15:24)
[2022-09-11 16:11] LABS: Bedside Glucose 111 mg/dL (74-106)
[2022-09-11] MEDS: QUEtiapine 25 MG Tablet 50 MG PO (22:23)
[2022-09-12] VITALS (8 sets, daily range): BP systolic 102–131; BP diastolic 65–89; PULSE 81–96; RESP 14–18; TEMP 36.5–37; O2SAT 92–99; BMI 24.7
[2022-09-12 03:12] LABS: Absolute Lymphocyte Count 0.91 X10^3/uL (0.83-4.51); Absolute Neutrophil Count 3.9 X10^3/uL (2.0-7.7); Basophil# 0.05 X10^3/uL; Basophil% 0.9 % (0-1); Eosinophil# 0.15 X10^3/uL; Eosinophils% 2.6 % (0-5); Hematocrit 32.4 % (40-54); Hemoglobin 11.3 g/dL (13.0-16.5); Lymphocyte # 0.91 X10^3/ul (0.83-4.51); Lymphocyte % 15.6 % (19-41); Mean Corp Hgb Conc 34.9 g/dL (32-36); Mean Corpuscular Hgb 37.7 pg (27.0-32.0); Mean Platelet Vol. 8.4 fl (6.2-12.0); Monocyte# 0.74 X10^3/uL; Monocyte% 12.7 % (0-10); NRBC Flagged by Analyzer 0 % (0-5); Neutrophil # 3.92 X10^3/uL (2.7-7.7); Neutrophil % 67.3 % (47-70); Platelet Count 285 K/mm3 (150-450); RBC Distribution Width CV 13.2 % (11.6-14.6); RBC Distribution Width SD 52.2 fl (35.1-43.9); White Blood Count 5.8 K/mm3 (4.4-11.0)
[2022-09-12 04:20] LABS: ALB/GLOB Ratio 0.5 RATIO (0.9-2.4); AST(SGOT) 96 U/L (15-37); Alanine Aminotransfer ALT/SGPT 54 U/L (16-61); Albumin, Serum 1.9 g/dL (3.2-5.0); Alkaline Phosphatase 261 U/L (45-117); Anion Gap 1 (5-15); BUN 11 mg/dL (7-18); BUN/Creat Ratio 21.4 RATIO (10-20); Chloride 109 mmol/L (98-107); Creatinine, Serum 0.51 mg/dL (0.70-1.30); EST Glomerular Filtration Rate 174 mL/min (>60); Est Glom Filt Rate - Afr Amer 210 mL/min (>60); Estimated Creatinine Clearance 166.95 ml/min; Globulin 4.1 g/dL (2.2-4.2); Glucose 90 mg/dL (74-106); Potassium 3.6 mmol/L (3.5-5.1); Sodium Level 139 mmol/L (136-145)
[2022-09-12] MEDS: clonazePAM 1 MG Tablet PO ×3 (07:54→21:05)
[2022-09-12] MEDS: Pantoprazole Sodium 40 MG Tablet PO (07:55)
[2022-09-12] MEDS: Folic Acid 1 MG Tablet PO (07:55)
[2022-09-12] MEDS: Thiamine Hydrochloride 100 MG Tablet PO ×3 (07:55→17:45)
[2022-09-12] MEDS: Metoprolol(XL)Succ 25 MG Tablet PO (07:58)
--- NOTE | 2022-09-12 10:40 | NURSING ---
to MRI per wheelchair
[2022-09-12 11:50] LABS: Bedside Glucose 86 mg/dL (74-106)
[2022-09-12] MEDS: clonazePAM 0.5 MG Tablet PO (11:56)
[2022-09-12] MEDS: Enoxaparin 40 MG/0.4 ML Syringe SC (11:56)
[2022-09-12] MEDS: CHLORHEXIDINE GLUC 2% CLOTH 1 EACH TOWELETTE TOPICAL (11:57)
--- NOTE | 2022-09-12 12:00 | MRI_ITS ---
EXAM: MR HEAD WITHOUT AND WITH INTRAVENOUS CONTRAST CLINICAL INDICATION: mental status change, h/o liver ca, alcohol w/d TECHNIQUE: Multiplanar and multisequence MR images of the brain were obtained without and with intravenous contrast. This report was created using [employer] report generation technology. CONTRAST: IV Clariscan. COMPARISON: None. FINDINGS: BRAIN AND EXTRA-AXIAL SPACES: Following IV contrast administration, there are no enhancing lesions intra-axially and extra-axially. No intra- or extra-axial hemorrhage. No evidence of acute infarct. No intracranial mass or mass effect. There is preservation of the mei/white matter interface. Posterior fossa structures are unremarkable. Ventricles are appropriate for age. No hydrocephalus. Basal cisterns are patent. No focal signal abnormalities throughout the brain parenchyma in all pulse sequences. SELLA: Unremarkable. Normal sella turcica, pituitary gland, infundibular stalk, optic chiasm and hypothalamus. AUDITORY SYSTEM: Unremarkable. The internal auditory canals are patent. BONES/JOINTS: Unremarkable. No discrete lytic or blastic abnormalities. SINUSES: Unremarkable as visualized. Clear. MASTOID AIR CELLS: Unremarkable as visualized. Clear. ORBITS: Unremarkable as visualized. Both globes, extraocular muscles, optic nerves and retrobulbar fat appear unremarkable. VASCULATURE: Unremarkable as visualized. Normal flow voids in the major intracranial circulation. MRI/Brain W/WO Contrast IMPRESSION: Negative MRI brain with and without contrast. Electronically Signed: Sixto Lares MD at 11:45 EDT Reading Location ID and State: [id number] , Service support ,
--- NOTE | 2022-09-12 15:07 | PN_ITS ---
Subjective Subjective Patient seen and examined. He had no active complaints. HE was on room air. Review of systems is otherwise negative. Has remained hemodynamically stable. Objective Data Objective Data Vital Signs: Vital Signs Temp Pulse Resp BP Pulse Ox O2 Del Method O2 Flow Rate 97.8 F 81 16 131/89 H 92 Room Air 2 09/12/22 09:00 09/12/22 09:00 09/12/22 09:00 09/12/22 09:00 09/12/22 09:00 09/12/22 09:00 09/12/22 03:19 FiO2 21 09/11/22 07:00 Oxygen Flow Rate (L/min) 2 Oxygen Delivery Method Room Air Weight: 182 lb 15.739 oz Body Mass Index (BMI) 24.7 Intake & Output: Intake and Output for Last 24 Hours 09/10/22 09/11/22 09/12/22 23:59 23:59 23:59 Intake Total 3358.6133 / 3370.8633 1865.6733 / 1865.6733 200 / 200 Output Total 600 / 600 3650 / 3650 1100 / 1100 Balance 2758.6133 / 2770.8633 -1784.3267 / -1784.3267 -900 / -900 Lab / Micro Data Result Diagrams: 09/12/22 03:00 09/12/22 03:00 Labs: Laboratory Results - last 24 hr 09/11/22 15:52: POC Glucose 111 H 09/12/22 03:00: WBC 5.8, RBC 3.00 L, Hgb 11.3 L, Hct 32.4 L, MCV 108.0 H, MCH 37.7 H, MCHC 34.9 D, RDW Std Deviation 52.2 H, RDW Coeff of Joe 13.2, Plt Count 285, MPV 8.4, Immature Gran % (Auto) 0.900, Neut % (Auto) 67.3, Lymph % (Auto) 15.6 L, Alexander % (Auto) 12.7 H, Eos % (Auto) 2.6, Baso % (Auto) 0.9, Absolute Neuts (auto) 3.9, Absolute Lymphs (auto) 0.91, Nucleated RBC % 0 09/12/22 03:00: Sodium 139, Potassium 3.6, Chloride 109 H, Carbon Dioxide 29.0, Anion Gap 1 L, BUN 11, Creatinine 0.51 L, Estim Creat Clear Calc 166.95, Est GFR (MDRD) Af Amer 210, Est GFR (MDRD) Non-Af 174, BUN/Creatinine Ratio 21.4 H, Glucose 90, Calcium 8.0 L, Total Bilirubin 1.00, AST 96 H, ALT 54, Alkaline Phosphatase 261 H, Total Protein 6.0 L, Albumin 1.9 L, Globulin 4.1, Albumin/Globulin Ratio 0.5 L 09/12/22 11:32: POC Glucose 86 Micro: Microbiology 09/09/22 22:05 Sputum, Tracheal Aspirate Gram Stain - Final 09/09/22 22:05 Sputum, Tracheal Aspirate Respiratory Culture - Final Radiography Diagnostic Testing: Radiology Impression Brain MRI 09/12/22 12:00 IMPRESSION: Negative MRI brain with and without contrast. Electronically Signed: Sixto Lares MD at 11:45 EDT , Rhythm Strip Rhythm Strip: Sinus Rhythm Rate: 91 Physical Exam Const alert, oriented x3 and no apparent distress General Appearance: cooperative HEENT head/scalp atraumatic and moist oral mucous membranes Eyes PERRL and EOMs intact bilaterally Neck no lymphadenopathy and supple General: trachea midline Lymph Lymphatic: no lymphadenopathy noted Resp Resp Narrative: mildly diminished breath sounds bibasally, no wheezes or crackles. On room air. Cardio regular rate, regular rhythm, S1 normal heart sound, S2 normal heart sound and no murmurs GI normal to inspection, nondistended, normoactive bowel sounds, soft to palpation, non-tender and non-distended Extremity normal capillary refill, no clubbing, cyanosis or edema and no calf tenderness Skin General Skin Exam: no breakdown Neuro CN's II-XII intact bilaterally, no focal motor deficits, no sensory deficits noted and deep tendon reflexes 2+ bilaterally Motor Exam: strength 5/5 throughout Psych thought process normal and cooperative Appearance: appropriate Assessment & Plan Assessment/Plan (1) Encephalopathy acute: PLAN: Plan #Acute encephalopathy * resolved. Was emergently intubated o.a of him being very agitated on admission. * now extubated and on room air. FOr MRI of brain today * on seroquel. For EEG * Had apparently been taking Klonopin very frequently at home as well as Xanax and drinking alcohol. * On benzodiazepine withdrawal protocol with phenobarbital. * #Acute hypoxic respiratory failure * In setting of benzodiazepine abuse. Now extubated and on room air * #Hypoglycemia: Resolved #DVT prophylaxis: Lovenox Disposition: Transfer out of ICU to regular floor. Total time spent on evaluation and management of patient, reviewing chart and specialist notes, discussing plan with patient, discussion with nursing and ancillary staff as well as documentation: 40 mins Charges/Coding Visit Charges Inpatient E&M: 26512 Subs Hosp L2
[2022-09-12 16:46] LABS: Bedside Glucose 115 mg/dL (74-106)
[2022-09-12] MEDS: Potassium Chloride Oral Tablet 20 MEQ 40 MEQ PO (16:58)
[2022-09-12] MEDS: QUEtiapine 25 MG Tablet 50 MG PO (21:02)
[2022-09-13] VITALS (8 sets, daily range): BP systolic 88–128; BP diastolic 60–81; PULSE 85–102; RESP 14–22; TEMP 36.6–36.8; O2SAT 94–98
[2022-09-13 03:43] LABS: Absolute Lymphocyte Count 0.98 X10^3/uL (0.83-4.51); Absolute Neutrophil Count 2.5 X10^3/uL (2.0-7.7); Basophil# 0.05 X10^3/uL; Basophil% 1.1 % (0-1); Eosinophil# 0.14 X10^3/uL; Eosinophils% 3.1 % (0-5); Hematocrit 33.8 % (40-54); Hemoglobin 11.7 g/dL (13.0-16.5); Lymphocyte # 0.98 X10^3/ul (0.83-4.51); Lymphocyte % 21.9 % (19-41); Mean Corp Hgb Conc 34.6 g/dL (32-36); Mean Corpuscular Hgb 37.9 pg (27.0-32.0); Mean Corpuscular Volume 109.4 fL (80-94); Mean Platelet Vol. 8.8 fl (6.2-12.0); Monocyte# 0.79 X10^3/uL; Monocyte% 17.6 % (0-10); NRBC Flagged by Analyzer 0 % (0-5); Neutrophil # 2.49 X10^3/uL (2.7-7.7); Neutrophil % 55.6 % (47-70); Platelet Count 304 K/mm3 (150-450); RBC Distribution Width CV 13.4 % (11.6-14.6); RBC Distribution Width SD 52.7 fl (35.1-43.9); Red Blood Count 3.09 M/mm3 (4.6-6.2); White Blood Count 4.5 K/mm3 (4.4-11.0)
[2022-09-13 04:01] LABS: ALB/GLOB Ratio 0.5 RATIO (0.9-2.4); AST(SGOT) 121 U/L (15-37); Alanine Aminotransfer ALT/SGPT 61 U/L (16-61); Alkaline Phosphatase 269 U/L (45-117); Anion Gap 2 (5-15); BUN 13 mg/dL (7-18); BUN/Creat Ratio 27.1 RATIO (10-20); Calcium,Total 8.2 mg/dL (8.5-10.1); Chloride 109 mmol/L (98-107); Creatinine, Serum 0.48 mg/dL (0.70-1.30); EST Glomerular Filtration Rate 188 mL/min (>60); Est Glom Filt Rate - Afr Amer 228 mL/min (>60); Estimated Creatinine Clearance 177.38 ml/min; Globulin 4.2 g/dL (2.2-4.2); Glucose 94 mg/dL (74-106); Potassium 4.3 mmol/L (3.5-5.1); Protein, Total 6.2 g/dL (6.4-8.2); Sodium Level 139 mmol/L (136-145)
[2022-09-13] MEDS: Pantoprazole Sodium 40 MG Tablet PO (08:22)
[2022-09-13] MEDS: Folic Acid 1 MG Tablet PO (08:22)
[2022-09-13] MEDS: Enoxaparin 40 MG/0.4 ML Syringe SC (08:22)
[2022-09-13] MEDS: Thiamine Hydrochloride 100 MG Tablet PO (08:22)
[2022-09-13] MEDS: clonazePAM 1 MG Tablet PO (08:22)
[2022-09-13] MEDS: Ensure Plus High Protein 120 ML LIQUID PO ×2 (08:24→14:11)
[2022-09-13] MEDS: Metoprolol(XL)Succ 25 MG Tablet PO (14:10)
[2022-09-13] MEDS: clonazePAM 0.5 MG Tablet PO (14:11)
--- NOTE | 2022-09-13 14:33 | DS.PCM_ITS ---
Providers Date of Admission: 09/09/22 Date of Discharge: 09/13/22 Primary Care Physician: No Primary Care Phys Consultations 09/09/22 23:20 Consult: [facility] / Pulmonary Medicine Routine Consulting Provider: Jose Barba Reason for Consult: Acute encephalopathy EMERGENT Consult: No MD Notified: Yes Date Notified: 09/09/22 Time Notified: 23:20 Method of Notification: ED Physician Initiated Reason For Visit: ACUTE ENCEPHALOPATHY Diagnosis Discharge Diagnosis (1) Encephalopathy acute: Status: Acute Code(s): G93.40 - Encephalopathy, unspecified Plan #Acute encephalopathy * resolved. Was emergently intubated o.a of him being very agitated on admissi on. * now extubated and on room air. FOr MRI of brain today * on seroquel. For EEG * Had apparently been taking Klonopin very frequently at home as well as Xanax and drinking alcohol. * On benzodiazepine withdrawal protocol with phenobarbital. * #Acute hypoxic respiratory failure * In setting of benzodiazepine abuse. Now extubated and on room air * #Hypoglycemia: Resolved #DVT prophylaxis: Lovenox Disposition: Transfer out of ICU to regular floor. Total time spent on evaluation and management of patient, reviewing chart and specialist notes, discussing plan with patient, discussion with nursing and ancillary staff as well as documentation: 40 mins Medications at Discharge Home Medications alprazolam 0.5 mg tablet 0.5 mg PO TID PRN Anxiety 09/09/22 clonazepam 1 mg tablet 1 mg PO TID PRN Anxiety 09/09/22 diltiazem HCl 120 mg capsule,extended release 24 hr 120 mg PO DAILY Check with primary doctor 09/09/22 metoprolol succinate 25 mg tablet,extended release 24 hr 25 mg PO DAILY Check with primary doctor 09/09/22 pantoprazole 20 mg tablet,delayed release 20 mg PO DAILY Check with primary doctor 09/09/22 sennosides 8.6 mg-docusate sodium 50 mg tablet (Stool Softener-Laxative) 1 tab PO DAILY PRN Constipation 09/09/22 trazodone 50 mg tablet 50 mg PO QHS sleep 09/09/22 Hospital Course Operations None Summary of Care Provided Minutes Spent on Discharge: 55 Hospital Course: Patient is a 62-year-old male with past medical history as outlined which includes a history of liver cancer s/p treatment which included radiation. He was admitted as a transfer from an outside hospital with a complaint of altered mental status. He had presented about 3 weeks prior to this admission at the same outside hospital for altered mental status. At that time he was found to be intoxicated from alcohol. On the day of presentation for this admission he again went to the outside hospital for altered mental status. He was agitated and he really could not be calmed down so he was emergently intubated to protect his airway. He was placed on etomidate and propofol and CT of the brain was negative. There was concern for infection so he was started on IV Rocephin. However subsequently this lab work showed no evidence of infection. Lactic acid was elevated and this resolved with administration of fluid. Patient was therefore treated for presumptive acute alcohol withdrawal and transferred to [facility] ICU. Urine tox was positive for benzodiazepines. Patient had been taken diazepam at home. He was placed on thiamine and folic acid and was continued on his propofol and fentanyl. Critical care was consulted. He was subsequently extubated and he had MRI of the brain which showed no evidence of any brain mets. Hospital course was complicated by electrolyte disturbance which resolved with aggressive replacement. General the patient admitted to taking 1 mg of Klonopin 3 times daily as well as 1 mg of Xanax at night and drank several glasses of wine daily. His Klonopin was resumed and was advised that patient will need to be weaned off of his benzodi azepines but this would need to be done on outpatient basis. He was counseled strongly to quit drinking alcohol. He remained stable and was discharged home on 09/13/2022. He is follow-up with his primary care doctor with a psychiatrist for tapering off of his benzodiazepines. Patient seen and examined prior to discharge. He had no complaints and had an uneventful night. Review of systems otherwise negative. Labs and vitals reviewed. Medication reviewed and reconciled. Physical Exam Const alert, oriented x3 and no apparent distress General Appearance: cooperative and comfortable HEENT normocephalic, head/scalp atraumatic, hearing grossly normal bilaterally and moist oral mucous membranes Eyes PERRL and EOMs intact bilaterally Neck no lymphadenopathy and supple General: trachea midline Lymph Lymphatic: no lymphadenopathy noted Resp Resp Narrative: mildly diminished breath sounds bibasally, no wheezes or crackles. On room air. Cardio regular rate, regular rhythm, S1 normal heart sound, S2 normal heart sound and no murmurs GI normal to inspection, nondistended, normoactive bowel sounds, soft to palpation, non-tender and non-distended Extremity normal capillary refill, no clubbing, cyanosis or edema and no calf tenderness Skin General Skin Exam: no breakdown Neuro oriented x3, CN's II-XII intact bilaterally, moves all extremities, no focal motor deficits, no sensory deficits noted and deep tendon reflexes 2+ bilater ally Motor Exam: strength 5/5 throughout Psych thought process normal and cooperative Appearance: appropriate Weight / BMI Weight Weight: 182 lb 15.739 oz Body Mass Index (BMI) 24.7 ABG / Lab / Microbiology Data Result Diagrams: 09/13/22 03:35 09/13/22 03:35 Laboratory: Laboratory Results - last 24 hr 09/12/22 16:24: POC Glucose 115 H 09/13/22 03:35: WBC 4.5, RBC 3.09 L, Hgb 11.7 L, Hct 33.8 L, MCV 109.4 H, MCH 37.9 H, MCHC 34.6, RDW Std Deviation 52.7 H, RDW Coeff of Joe 13.4, Plt Count 304, MPV 8.8, Immature Gran % (Auto) 0.700, Neut % (Auto) 55.6, Lymph % (Auto) 21.9, Donley % (Auto) 17.6 H, Eos % (Auto) 3.1, Baso % (Auto) 1.1 H, Absolute Neuts (auto) 2.5, Absolute Lymphs (auto) 0.98, Nucleated RBC % 0 09/13/22 03:35: Sodium 139, Potassium 4.3, Chloride 109 H, Carbon Dioxide 28.0, Anion Gap 2 L, BUN 13, Creatinine 0.48 L, Estim Creat Clear Calc 177.38, Est GFR (MDRD) Af Amer 228, Est GFR (MDRD) Non-Af 188, BUN/Creatinine Ratio 27.1 H, Glucose 94, Calcium 8.2 L, Total Bilirubin 0.90, AST 121 H, ALT 61, Alkaline Phosphatase 269 H, Total Protein 6.2 L, Albumin 2.0 L, Globulin 4.2, Albumin/Globulin Ratio 0.5 L Microbiology: Microbiology 09/09/22 22:05 Sputum, Tracheal Aspirate Gram Stain - Final 09/09/22 22:05 Sputum, Tracheal Aspirate Respiratory Culture - Final D/C Instructions Discharge Diet: Low fat / Low cholesterol Discharge Activity: Return to Normal Activity Weight Bearing Status: Weight bearing as tolerated Call your doctor if you observe: Fever of 101 or Higher, Shortness of breath, Dizziness, Swelling in the ankles, Chest pain and Increased palpitations (irregular heartbeat) Meaningful Use Info Meaningful Use Diagnoses (Choose all that apply): None applicable Discharge Plan Admission Admit Date/Time: 09/09/22 22:39 Primary Reason for Your Visit: acute encephalopathy Attending Provider: Susan Fernandez Primary Care Provider: Care Physician,No Primary Consulting Providers: Jose Barba ; Bakari Stout ; Queenie Oviedo Instructions Additional Instructions / Restrictions: Patient counseled strongly to quit drinking, especially since he is on benzod iazepines. To follow up with his PCP and psychiatrist for benzodiazepines to be tapered off Discharge Orders/Prescriptions Prescriptions: Continued trazodone 50 mg tablet 50 mg PO QHS sennosides-docusate sodium [Stool Softener-Laxative] 8.6-50 mg tablet 1 tab PO DAILY PRN (Reason: Constipation) Label Comments: TAKE 2 TABLETS BY MOUTH ONCE DAILY AT BEDTIME clonazepam 1 mg tablet 1 mg PO TID PRN (Reason: Anxiety) Label Comments: TAKE 1 TABLET BY MOUTH 3 TIMES A DAY pantoprazole 20 mg tablet,delayed release (DR/EC) 20 mg PO DAILY Label Comments: TAKE 1 TABLET BY MOUTH ONCE DAILY alprazolam 0.5 mg tablet 0.5 mg PO TID PRN (Reason: Anxiety) Label Comments: TAKE 1 TABLET BY MOUTH 3 TIMES A DAY NEEDED diltiazem HCl 120 mg capsule,extended release 24hr 120 mg PO DAILY Label Comments: TAKE 1 CAPSULE BY MOUTH EVERY DAY metoprolol succinate 25 mg tablet extended release 24 hr 25 mg PO DAILY Label Comments: TAKE 1 TABLET BY MOUTH EVERY DAY Referrals / Follow Up: Care Physician,No Primary [Primary Care Provider] - Within 2 Weeks Disposition Disposition (needs filled in before D/C Order can be placed): Home, Self Care Charges/Coding Visit Charges Inpatient E&M: 39407 Disch Hosp >30min
--- NOTE | 2022-09-13 16:13 | NURSING ---
reviewed discharge instructions voiced understanding awaiting for transport home
== END 2022-09-13 16:18 | disposition home or self-care (01) | DRG 917 ==
PROVIDERS: Internal Medicine; Internal Medicine Critical Care Medicine; Admitting Provider Hospitalist; Visit Provider Student in an Organized Health Care Education/Training Program
DX: T42.4X1A Poisoning by benzodiazepines, accidental (unintentional), initial encounter (principal); T51.91XA Toxic effect of unspecified alcohol, accidental (unintentional), initial encounter; G92.8 Other toxic encephalopathy; J96.01 Acute respiratory failure with hypoxia; C22.9 Malignant neoplasm of liver, not specified as primary or secondary; F10.239 Alcohol dependence with withdrawal, unspecified; R45.1 Restlessness and agitation; E16.2 Hypoglycemia, unspecified; S01.01XD Laceration without foreign body of scalp, subsequent encounter; W19.XXXD Unspecified fall, subsequent encounter; Z92.3 Personal history of irradiation
CPT/HCPCS: 31720; 36600; 70553; 71045; 80053; 82550; 82803; 82962; 83735; 84100; 84478; 85025; 87070; 87205; 93005; 94002; 94003; 94668; 94762; 97162; 97802; 99252; A9575; J7030; J7040; A4216; G0463; J3010; J3490; J7799